=== PATIENT | male | born 1980 | race African-American/Black ===

== ENCOUNTER 2016-12-14 23:32 | Emergency (ER) | payer OTHER ==
[~2016-12-14] VITALS: Ht 175.3 cm; Wt 89.2 kg
[~2016-12-14 23:32] MED LIST: ADDERALL XR 2020 MG PO; AMPHETAMINE SAL30 MG PO; BENADRYL25 MG PO; BENTYL20 MG PO; BUSPAR10 MG PO; CARAFATE1 GM PO; COUMADIN5 MG PO; ESCITALOPRAM OX20 MG PO; LAMICTAL25 MG PO; LAMOTRIGINE100 MG PO; LOVENOX80 MG/0.8 SC; MOOD STABILIZER PO; OXYCODONE HCL5 MG PO; PROMETHAZINE HC25 M1 PO; TYLENOL ARTHRI650 MG PO; ULTRAM50 MG PO; WARFARIN SODIUM1 MG PO
[2016-12-15 01:16] LABS: HEMATOCRIT 48.2 % (38.0-50.0); MCH 30.3 PG (29.0-34.0); MCHC 32.8 G/DL (30.0-36.0); MCV 92.5 FL (86-99); MEAN PLAT.VOLUME 10.7 uM^3 (9.0-12.4); PLATELET COUNT 312 K/uL (156-360); RBC DIS.WIDTH-CV 11.1 % (11.8-14.6); RBC DIS.WIDTH-SD 37.9 % (39-53); RED BLOOD COUNT 5.21 M/uL (4.00-5.50); WHITE BLOOD COUNT 10.4 K/uL (4.1-10.2)
[2016-12-15 01:26] LABS: CHLORIDE 106 mEq/L (99-109); SODIUM 140 mEq/L (136-147)
[2016-12-15 01:28] LABS: GLUCOSE 95 mg/dL (70-99)
[2016-12-15 01:29] LABS: ANION GAP 11 MEQ/L (2-14)
[2016-12-15 01:31] LABS: SERUM ETHYL ALCOHOL < 10 mg/dL
[2016-12-15 01:32] LABS: GFR ESTIMATE (CALCULATED) > 59 mL/min/
[2016-12-15 01:33] LABS: UREA NITROGEN (BUN) 14 mg/dL (9-23)
[2016-12-15 01:41] LABS: TROP-I INTERPRETATION NEGATIVE; TROPONIN-I < 0.01 ng/mL (0.0-0.30)
[2016-12-15 02:39] VITALS: BP 138/79
== END 2016-12-15 02:40 ==
LOC: EME 23:32
PROVIDERS: Emergency Medicine
DX: F41.1 Generalized anxiety disorder (principal); R07.9 Chest pain, unspecified; Z88.1 Allergy status to other antibiotic agents; Z86.73 Personal history of transient ischemic attack (TIA), and cerebral infarction without residual deficits; Z79.01 Long term (current) use of anticoagulants; F43.10 Post-traumatic stress disorder, unspecified
CPT/HCPCS: 71010; 80048; 84484; 85027; 93005; 99281; 99284; G0480

== ENCOUNTER 2017-04-28 14:42 | Inpatient (IN) | payer OTHER ==
[~2017-04-28] VITALS: Ht 172.7 cm; Wt 84.0 kg
[~2017-04-28 14:42] MED LIST changes: +LAMICTAL200 MG PO; -LAMOTRIGINE100 MG PO
[2017-04-28 16:48] LABS: HEMATOCRIT 45.9 % (38.0-50.0); MCH 31.1 PG (29.0-34.0); MCV 91.6 FL (86-99); MEAN PLAT.VOLUME 10.6 uM^3 (9.0-12.4); PLATELET COUNT 266 K/uL (156-360); RBC DIS.WIDTH-CV 11.3 % (11.8-14.6); RBC DIS.WIDTH-SD 38.4 % (39-53); RED BLOOD COUNT 5.01 M/uL (4.00-5.50); WHITE BLOOD COUNT 9.6 K/uL (4.1-10.2)
[2017-04-28 16:48] LABS: ADD MIUA? YES; BILIRUBIN NEGATIVE; BLOOD MODERATE; COLOR YELLOW ((YELLOW)); GLUCOSE (STRIP) NEGATIVE; KETONES NEGATIVE; LEUKOCYTES NEGATIVE; NITRITE NEGATIVE; PROTEIN (STRIP) 30; UROBILINOGEN 0.2 MG/DL (0.2-1.0)
[2017-04-28 16:52] LABS: BACTERIA NONE SEEN /HPF; EPITHELIAL CELLS NONE SEEN /HPF; MUCUS TRACE /LPF; RED BLOOD CELLS 0-5 /HPF (0-5); UCUL ADDED? NO; WHITE BLOOD CELLS 0-5 /HPF (0-5)
[2017-04-28 16:57] LABS: AMPHETAMINE PRESUMPTIVE POSITIVE (500 ng/mL); BENZODIAZEPINES NEGATIVE (150 ng/mL); COCAINE NEGATIVE (150 ng/mL); METHADONE NEGATIVE (200 ng/mL); METHAMPHETAMINE NEGATIVE (500 ng/mL); OPIATES (MORPHINE) NEGATIVE (100 ng/mL); PHENCYCLIDINE NEGATIVE (25 ng/mL); THC CANNABINOIDS PRESUMPTIVE POSITIVE (50 ng/mL); TRICYCLIC ANTIDEPRESSANTS NEGATIVE (300 ng/mL)
[2017-04-28 16:58] LABS: ADD MEDTOX COMMENT Y; BARBITURATES NEGATIVE (200 ng/mL); INTERNAL CONTROLS VALID? YES; OXYCODONE NEGATIVE (100 ng/mL); PROPOXYPHENE NEGATIVE (300 ng/mL)
[2017-04-28 17:06] LABS: CHLORIDE 102 mEq/L (99-109); POTASSIUM 3.7 mEq/L (3.7-5.4); SODIUM 138 mEq/L (136-147)
[2017-04-28 17:08] LABS: GLUCOSE 103 mg/dL (70-99)
[2017-04-28 17:10] LABS: ANION GAP 11 MEQ/L (2-14)
[2017-04-28 17:11] LABS: SERUM ETHYL ALCOHOL < 10 mg/dL
[2017-04-28 17:12] LABS: ALKALINE PHOSPHATASE 73 IU/L (3-129); GFR ESTIMATE (CALCULATED) > 59 mL/min/
[2017-04-28 17:13] LABS: UREA NITROGEN (BUN) 9 mg/dL (9-23)
[2017-04-28] MEDS ORDERED: KLONOPIN0.5 M1 PO (19:02)
[2017-04-28 20:32] VITALS: BP 132/82
[2017-04-29 07:48] VITALS: BP 94/55
[2017-04-29 16:15] VITALS: BP 98/62
[2017-04-30 08:58] VITALS: BP 99/58
[2017-04-30 16:42] VITALS: BP 89/54
[2017-05-01 07:50] VITALS: BP 109/57
[2017-05-01 15:29] VITALS: BP 108/61
[2017-05-02 07:34] VITALS: BP 93/52
[2017-05-02] MEDS ORDERED: LAMICTAL25 MG PO (09:31)
== END 2017-05-02 11:06 | disposition home or self-care (01) | DRG 885 ==
LOC: EME 14:42 → EDOF 18:05 → 1WEST 18:05 → ENRESERV 20:26 → 1WEST 20:27
PROVIDERS: Emergency Medicine
DX: F29 Unspecified psychosis not due to a substance or known physiological condition (principal); F33.9 Major depressive disorder, recurrent, unspecified; R45.851 Suicidal ideations; F10.10 Alcohol abuse, uncomplicated; F63.81 Intermittent explosive disorder; F90.9 Attention-deficit hyperactivity disorder, unspecified type; F51.5 Nightmare disorder; F41.9 Anxiety disorder, unspecified; G47.00 Insomnia, unspecified; F43.10 Post-traumatic stress disorder, unspecified; R45.850 Homicidal ideations; F60.0 Paranoid personality disorder; F12.10 Cannabis abuse, uncomplicated; F22 Delusional disorders; Z59.0 Homelessness; Z56.0 Unemployment, unspecified
CPT/HCPCS: 74000; 80053; 81003; 84999; 85027; 90839; 97150 GO; 97165 GO; 99281; 99285; G0480